=== PATIENT | male | born 1985 | race Caucasian/White ===

== ENCOUNTER 2017-11-26 16:54 | Emergency (ER) | payer MEDICAID ==
[~2017-11-26] VITALS: Ht 167.6 cm; Wt 61.0 kg
[2017-11-26 16:59] VITALS: BP 142/84
== END 2017-11-26 17:48 | disposition home or self-care (01) ==
LOC: ED 17:42
DX: F10.120 Alcohol abuse with intoxication, uncomplicated (principal)
CPT/HCPCS: 99283

== ENCOUNTER 2021-04-30 20:10 | Emergency (ER) | payer MEDICAID ==
[~2021-04-30] VITALS: Ht 167.6 cm; Wt 53.7 kg
--- NOTE | 2021-04-30 20:16 | NUR ---
THIS IS A 36M BIB EMS PT WAS FOUND PASSED OUT DRUNK IN A RICKS, BYSTANDERS CALLED 911. PT ADMITS TO 3-4 LARGE MIX DRINKS TONIGHT PRIOR TO COMING IN. PT DENIES TRAUMA/ INJURY OR PAIN. PT CONNECTED TO MONITORING VSS, NADN NO NEEDS AT THIS TIME. PROVIDER TO BEDSIDE FOR EVAL. POC DISCUSSED
--- NOTE | 2021-04-30 22:00 | NUR ---
PT AMB WITHOUT DIFFICULTY, STEADY GAIT
[2021-04-30 22:36] VITALS: BP 126/80
--- NOTE | 2021-04-30 22:37 | NUR ---
Patient/Caregiver given discharge instructions and they have confirmed that they understand the instructions. Patient ambulatory with steady gait. NAD, all questions answered appropriately, denies additional needs at this time. No personal belongings left in room after discharge.
== END 2021-04-30 22:38 | disposition home or self-care (01) ==
LOC: ED 20:40
DX: F10.120 Alcohol abuse with intoxication, uncomplicated (principal); F12.10 Cannabis abuse, uncomplicated; R00.0 Tachycardia, unspecified; Y90.0 Blood alcohol level of less than 20 mg/100 ml
CPT/HCPCS: 99283